=== PATIENT | female | born 1960 | race Caucasian/White ===

== ENCOUNTER 2019-05-21 15:27 | Emergency (ER) | payer OTHER ==
[2019-05-21 16:35] VITALS: BP 130/68
--- NOTE | 2019-05-21 17:45 | UC ---
Back Pain HPI - HPI Summary HPI Summary: Pt c/o urinary frequency, urgency, dysuria and low back discomfort X 1 day. - History of Current Complaint Chief Complaint: UCGU Stated Complaint: NAUSEA, SIDE PAIN Time Seen by Provider: 05/21/19 16:55 Hx Obtained From: Patient Hx Last Menstrual Period: 40s 50 ?: No Onset/Duration: Sudden Onset, Still Present Timing: Intermittent, Lasting Hours Severity Initially: Moderate Severity Currently: Mild Pain Intensity: 8 Pain Scale Used: 0-10 Numeric Back Pain: Is Discrete @ - low back Character: Dull, Aching, Spasmodic, Stiffness Aggravating Factor(s): Nothing Alleviating Factor(s): Nothing Associated Signs And Symptoms: Positive: Negative - Risk Factors AAA Risk Factors: Negative TAD Risk Factors: Negative Cauda Equina Risk Factors: Negative Epidural Abscess Risk Factors: Negative - Allergies/Home Medications Allergies/Adverse Reactions: Allergies Allergy/AdvReac Type Severity Reaction Status Date / Time Penicillins Allergy Rash Verified 05/21/19 16:30 prochlorperazine Allergy lock jaw Verified 05/21/19 16:30 [From Compazine] Home Medications: Home Medications Acetaminophen [Non-Aspirin Extra Strength] 1,000 mg PO Q4H PRN 05/21/19 [ History Confirmed 05/21/19] Ibuprofen TAB* [Motrin TAB* 400 MG] 400 mg PO Q4H PRN 05/21/19 [History Confirmed 05/21/19] Multivitamin [Honey Bears] 1 chw PO QPM 05/21/19 [History Confirmed 05/21/19] PMH/Surg Hx/FS Hx/Imm Hx Previously Healthy: Yes GI/ History: Other - UTI - Surgical History Surgical History: Yes Surgery Procedure, Year, and Place: gb, tubal ligation - Family History Known Family History: Positive: Cardiac Disease - Social History Occupation: Unemployed Lives: With Family Alcohol Use: None Substance Use Type: None Smoking Status (MU): Former Smoker Have You Smoked in the Last Year: No Review of Systems All Other Systems Reviewed And Are Negative: Yes Constitutional: Positive: Negative Skin: Positive: Negative Eyes: Positive: Negative ENT: Positive: Negative Respiratory: Positive: Negative Cardiovascular: Positive: Negative Gastrointestinal: Positive: Negative Genitourinary: Positive: Dysuria, Frequency, Urgency Motor: Positive: Negative Neurovascular: Positive: Negative Musculoskeletal: Positive: Myalgia Neurological: Positive: Negative Psychological: Positive: Negative Is Patient Immunocompromised?: No Physical Exam Triage Information Reviewed: Yes Appearance: Pain Distress Vital Signs: Initial Vital Signs Temp 99.5 F 05/21/19 16:19 Pulse 80 05/21/19 16:19 Resp 20 05/21/19 16:19 BP 130/68 05/21/19 16:19 Pulse Ox 100 05/21/19 16:19 Vital Signs Reviewed: Yes Eye Exam: Normal ENT Exam: Normal Dental Exam: Normal Neck exam: Normal Respiratory Exam: Normal Respiratory: Positive: Normal breath sounds Cardiovascular Exam: Normal Abdominal Exam: Normal Musculoskeletal Exam: Normal Neurological Exam: Normal Psychological Exam: Normal Skin Exam: Normal Back Pain Course/Dx - Differential Dx/Diagnosis Differential Diagnosis/HQI/PQRI: Herniated Disc, Strain, Other - kidney stone, pyelonephritis Provider Diagnosis: UTI (urinary tract infection) Discharge ED - Sign-Out/Discharge Documenting (check all that apply): Patient Departure All imaging exams completed and their final reports reviewed: No Studies - Discharge Plan Condition: Stable Disposition: HOME Prescriptions: Nitrofurantoin Monohyd/M-Cryst [Macrobid 100 mg Capsule] 100 mg PO Q12H #14 cap Phenazopyridine TAB* [Pyridium 100 mg TAB*] 100 mg PO Q8H #3 tab Patient Education Materials: Urinary Tract Infection in Women (ED), Acute Low Back Pain (ED) Referrals: [facility]FERR[facility] [Outside] - If Needed No Primary Care Phys,NOPCP [Primary Care Provider] - Additional Instructions: Please follow up with your PCP as needed. - Billing Disposition and Condition Condition: STABLE Disposition: Home
== END 2019-05-21 17:09 | disposition home or self-care (01) ==
LOC: UCCORT 15:27
DX: N39.0 Urinary tract infection, site not specified (principal); R11.0 Nausea; Z88.0 Allergy status to penicillin; Z88.8 Allergy status to other drugs, medicaments and biological substances; Z87.891 Personal history of nicotine dependence
CPT/HCPCS: 81003; 87086; 99212; G0463

== ENCOUNTER 2019-05-22 14:46 | Emergency (ER) | payer OTHER ==
[2019-05-22 15:02] VITALS: BP 122/67
--- NOTE | 2019-05-22 15:18 | UC ---
Abdominal Pain Female HPI - HPI Summary HPI Summary: 59-year-old female who was seen here yesterday for urinary tract infection and was started on nitrofurantoin. She states she thinks she is having allergic reaction because she has some lower facial swelling. She denies any difficulty breathing. She states she continues to have burning on urination, abdominal pain and back pain. She has nausea however no vomiting and no diarrhea. She denies any fever. - History of Current Complaint Chief Complaint: UCGeneralIllness Stated Complaint: FACIAL SWELLING Time Seen by Provider: 05/22/19 14:54 Hx Obtained From: Patient Hx Last Menstrual Period: 40s 50 ?: No Onset/Duration: Gradual Onset Timing: Constant Severity Initially: Mild Severity Currently: Moderate Pain Intensity: 7 Location: Diffuse Radiates: No Radiates to: Back - Patient denies radiation of the pain to her back however she does complain of low back pain. Character: Aching, Dull Aggravating Factor(s): Nothing Alleviating Factor(s): Nothing Associated Signs and Symptoms: Positive: Back Pain, Urinary Symptoms, Nausea, Other: - Abdominal pain. Allergies/Adverse Reactions: Allergies Allergy/AdvReac Type Severity Reaction Status Date / Time nitrofurantoin Allergy Swelling Verified 05/22/19 15:09 [From Macrobid] Of Face,Lips,& Throat Penicillins Allergy Rash Verified 05/22/19 15:09 prochlorperazine Allergy lock jaw Verified 05/22/19 15:09 [From Compazine] PMH/Surg Hx/FS Hx/Imm Hx Previously Healthy: Yes - Surgical History Surgical History: Yes Surgery Procedure, Year, and Place: gb, tubal ligation - Family History Known Family History: Positive: Cardiac Disease - Social History Alcohol Use: None Substance Use Type: None Smoking Status (MU): Former Smoker Have You Smoked in the Last Year: No Review of Systems All Other Systems Reviewed And Are Negative: Yes Respiratory: Negative: Shortness Of Breath, Cough Gastrointestinal: Positive: Abdominal Pain - Patient complains of lower abdominal pain. Genitourinary: Positive: Dysuria, Frequency - Patient states she continues to have urinary frequency and burning. She denies any abnormal vaginal discharge. She is sexually active with one partner. Is Patient Immunocompromised?: No Physical Exam Triage Information Reviewed: Yes Appearance: No Pain Distress, Well-Nourished, Ill-Appearing - Patient is pale in appearance and appears mildly ill. Vital Signs: Initial Vital Signs Temp 98.1 F 05/22/19 14:58 Pulse 92 05/22/19 14:58 Resp 16 05/22/19 14:58 BP 122/67 05/22/19 14:58 Pulse Ox 100 05/22/19 14:58 Vital Signs Reviewed: Yes Eyes: Positive: Conjunctiva Clear ENT: Positive: Pharynx normal, TMs normal, Uvula midline, Other - Patient has some mild swelling to her anterior upper neck. For me it's difficult to ascertain what part of that area swollen and what is her normal neck appearance. Neck: Positive: Supple, Nontender, No Lymphadenopathy Respiratory: Positive: Lungs clear, Normal breath sounds, No respiratory distress, No accessory muscle use Cardiovascular: Positive: RRR, No Murmur, Pulses Normal, Brisk Capillary Refill Abdomen Description: Positive: No Organomegaly, Soft, Guarding - Abdomen is tender on palpation in the lower abdomen as well as the left upper quadrant with mild guarding.. Negative: CVA Tenderness (R), CVA Tenderness (L), Distended, Hepatomegaly, McBurney's Point Tenderness, Splenomegaly Bowel Sounds: Positive: Present Musculoskeletal Exam: Normal Neurological Exam: Normal Psychological Exam: Normal Skin Exam: Normal Abd Pain Female Course/Dx - Course Course Of Treatment: Although the patient's urine from yesterday he had leukocytes in it and she more than likely has urinary tract infection I feel because of the amount of abdominal pain she's having, she feels worse today, and she just doesn't look like she feels well I am going to send her to the emergency room for further treatment. The patient is agreeable to this plan of action. - Differential Dx/Diagnosis Provider Diagnosis: Lower abdominal pain, LUQ abdominal pain Discharge ED - Sign-Out/Discharge Documenting (check all that apply): Patient Departure All imaging exams completed and their final reports reviewed: No Studies - Discharge Plan Condition: Fair Disposition: HOME-RECOMMEND TO ED Referrals: Jelly Krause MD [Primary Care Provider] - Additional Instructions: After the evaluation by the nurse practitioner, it is recommended that you go to the emergency room for further evaluation of the abdominal pain where you should receive additional testing that can be completed in the emergency department. It is recommended that you go directly to the emergency department. This evaluation may include blood work or imaging. This testing will be directed and decided by the provider that evaluates you within the emergency department. If pain becomes worse, you feel lightheaded or you develop uncontrolled vomiting, or have any other concerns while you are driving to the emergency room, please clod puller and call 911. - Billing Disposition and Condition Condition: FAIR Disposition: Home-Recommend to ED - Attestation Statements Provider Attestation: This patient was not seen by me. I was available for consult. Chart reviewed. JERRY
== END 2019-05-22 15:24 | disposition home health service (06) ==
LOC: UCCORT 14:46
DX: R10.12 Left upper quadrant pain (principal); R10.30 Lower abdominal pain, unspecified; R35.0 Frequency of micturition; R30.0 Dysuria; R30.9 Painful micturition, unspecified; M54.9 Dorsalgia, unspecified; R11.0 Nausea; Z88.0 Allergy status to penicillin; Z88.1 Allergy status to other antibiotic agents; Z88.8 Allergy status to other drugs, medicaments and biological substances; Z87.891 Personal history of nicotine dependence
CPT/HCPCS: 99212; G0463